=== PATIENT | female | born 1935 | race Caucasian/White ===

== ENCOUNTER 2024-06-02 01:00 | Emergency (ER) | payer OTHER ==
[~2024-06-02] VITALS: Ht 167.6 cm; Wt 87.0 kg
[2024-06-02 01:05] VITALS: O2SAT 96
[2024-06-02] MEDS ORDERED: AZITHROMYCIN 500MG/250ML 250 ML IV ONE (01:45)
[2024-06-02 01:54] VITALS: TEMP 37.05852
[2024-06-02] MEDS: HYDRALAZINE 20MG/ML VIAL IV ONE (02:27)
[2024-06-02] MEDS: ONDANSETRON HCL 4MG/2ML INJ IV ONE (02:30)
[2024-06-02] MEDS: SODIUM CHLORIDE 0.9% (SEPSIS BOLUS) IV ONE (02:39)
[2024-06-02 02:47] LABS: BASOPHILS % 2.4 % (0.0-2.0); HEMOGLOBIN. 13.9 g/dL (12.0-16.0); MEAN CORPUSCULAR HEMOGLOBIN 33.2 pg (28.0-32.0); MEAN CORPUSCULAR VOLUME 97.7 fL (81.0-99.0); MEAN PLATELET VOLUME 9.4 fl (7.4-10.4); NEUTROPHILS % 58.6 % (40.0-76.0); PLATELET 238 x1000/uL (130-400); RED BLOOD CELL COUNT 4.19 mill/uL (4.2-5.4); RED CELL DISTRIBUTION WIDTH 14.7 % (11.6-14.6); WHITE BLOOD COUNT 5.4 x1000/uL (4.5-11.0)
[2024-06-02] MEDS: CEFTRIAXONE 1GM/50ML 50 ML IV ONE (02:51)
[2024-06-02 02:54] LABS: CHLORIDE 101 mEq/L (98-107); SODIUM 138 mEq/L (136-145)
[2024-06-02 02:55] LABS: CARBON DIOXIDE 28 mEq/L (21-32)
[2024-06-02 02:59] LABS: CREATININE 0.8 mg/dL (0.6-1.0)
[2024-06-02 03:00] LABS: GLUCOSE 147 mg/dL (70-105); LACTIC ACID 2.8 mmol/L (0.4-2.0); TROPONIN I HIGH SENSITIVITY 30 ng/L (3.0-34); UREA NITROGEN BLOOD 16 mg/dL (9-23)
[2024-06-02 03:01] LABS: ALANINE AMINOTRANSFERASE 16 IU/L (10-49); ALBUMIN 4.4 g/dL (3.2-4.8); ASPARTATE AMINOTRANSFERASE 20 IU/L (<34)
[2024-06-02 03:02] LABS: BILIRUBIN DIRECT 0.2 mg/dL (<=3.0); BILIRUBIN TOTAL 0.7 mg/dL (0.1-1.0)
[2024-06-02] MEDS: AZITHROMYCIN 500 MG in SODIUM CHLORIDE 0.9% 250 ML IV NR (04:22)
[2024-06-02] MEDS: POTASSIUM CHLORIDE 20MEQ/PACKET PO ONE (04:29)
[2024-06-02 04:37] LABS: INR 1.1; PARTIAL THROMBOPLASTIN TIME 22.5 sec (23.4-31.0); PROTHROMBIN TIME 11.7 sec (9.6-11.0)
[2024-06-02] MEDS: KCL 20MEQ/100ML PREMIX 100 ML IV ONE (06:00)
[2024-06-02] MEDS: ASPIRIN 81MG TABLET PO ONE (06:20)
[2024-06-02 07:30] VITALS: BP 145/60; PULSE 92; RESP 18; O2SAT 96
== END 2024-06-02 08:25 | disposition short-term general hospital (02) ==
LOC: ER 01:00 → EDBEDREQ 05:37 → ER 08:25
DX: A41.9 Sepsis, unspecified organism (principal); R42 Dizziness and giddiness; R65.20 Severe sepsis without septic shock; I10 Essential (primary) hypertension; R53.1 Weakness; Z20.822 Contact with and (suspected) exposure to COVID-19
CPT/HCPCS: 99291; 96365; 70450; 71045; 87426; 80076; 80048; 83880; 83605; 85025; 85610; 85730; 87040; 84484; 87804 ×2; 36415; 84145; 93005; 96368; J0456; J0696; J0360; J2405; J3480; J7050; J7030